=== PATIENT | female | born 1985 | race Two or more races ===

== ENCOUNTER 2023-05-27 15:59 | Inpatient (IN) | payer MEDICAID ==
[~2023-05-27] VITALS: Ht 162.6 cm; Wt 97.5 kg
[2023-05-27 16:00] VITALS: BP 149/65; TEMP 98.8; O2SAT 99
[2023-05-27 16:30] VITALS: BP 149/65; TEMP 98.8; O2SAT 99
[2023-05-27] MEDS ORDERED: LEVO25TA7 PO (16:38)
[2023-05-27] MEDS ORDERED: FURO-145 PO (16:38)
[2023-05-27] MEDS ORDERED: VENL37.55 PO (16:38)
[2023-05-27] MEDS ORDERED: PANT40TA2 PO (16:38)
[2023-05-27] MEDS ORDERED: MYCO500T PO (16:38)
[2023-05-27] MEDS ORDERED: PRED5TAB PO (16:38)
[2023-05-27] MEDS ORDERED: BENA20TA9 PO (16:38)
[2023-05-27] MEDS ORDERED: CALC1TAB30 PO (16:38)
[2023-05-27] MEDS ORDERED: FOLI0.4T6 PO (16:38)
[2023-05-27] MEDS ORDERED: RIVA10TA PO (16:38)
[2023-05-27] MEDS ORDERED: CYAN-51 PO (16:38)
[2023-05-27] MEDS ORDERED: HYDROCODONE/APAP 5/325MG TABLET PO PRN (17:00)
[2023-05-27] MEDS ORDERED: ACETAMINOPHEN 325 MG TABLET PO PRN (17:00)
[2023-05-27] MEDS ORDERED: MAGNESIUM HYDROXIDE 30 ML UDC PO PRN (17:00)
[2023-05-27] MEDS ORDERED: Z GUARD REMEDY 4 OZ OINT TP PRN (17:00)
[2023-05-27] MEDS ORDERED: ENOXAPARIN SODIUM 40 MG/0.4 ML DISP.SYRIN SQ SCH (17:00)
[2023-05-27] MEDS ORDERED: ONDANSETRON HCL/PF 4 MG/2 ML VIAL IVP PRN (17:00)
[2023-05-27] MEDS ORDERED: MAG HYDROX/AL HYDROX/SIMETH 30 ML UDC PO PRN (17:00)
[2023-05-27] MEDS ORDERED: ALBUTEROL FS 2.5 MG/0.5 ML VIAL.NEB NEB PRN (17:00)
[2023-05-27] MEDS ORDERED: IPRATROPIUM NEB FS 0.5 MG/2.5 ML AMPUL.NEB NEB PRN (17:00)
[2023-05-27] MEDS: DOXYCYCLINE HYCLATE (100 MG) 100 MG TABLET PO SCH ×2 (17:57→21:19)
[2023-05-27] MEDS: dexaMETHasone SOD PHOSPHATE 10 MG/ML VIAL IV SCH (17:58)
[2023-05-27] MEDS ORDERED: PIPERACILLIN /TAZOBACTAM 3.375 G in IV D5W 100 ML IV SCH (18:00)
[2023-05-27] MEDS: FLUCONAZOLE IN NS 100 MG in PREMIX 1 EA IV SCH ×2 (18:19)
[2023-05-27] MEDS ORDERED: KETOROLAC TROMETHAMINE INJ 30 MG/ML VIAL IV PRN ×2 (19:00→19:30)
[2023-05-27 20:00] VITALS: BP 157/90; TEMP 98.8; O2SAT 93
[2023-05-27] MEDS ORDERED: MORPHINE SULFATE INJ 2 MG/ML DISP.SYRIN IV PRN (20:30)
[2023-05-27] MEDS ORDERED: VANCOMYCIN 1.25 GM in IV D5W 250 ML IV SCH ×2 (21:00→23:00)
[2023-05-27] MEDS ORDERED: LORAZEPAM INJ 2 MG/ML VIAL IV ONE (22:00)
[2023-05-28] VITALS (7 sets, daily range): BP systolic 114–159; BP diastolic 65–96; TEMP 97.5–98.4; O2SAT 95–99
[2023-05-28] MEDS: dexaMETHasone SOD PHOSPHATE 10 MG/ML VIAL IV SCH ×5 (00:03→23:27)
[2023-05-28] MEDS: MORPHINE SULFATE INJ 2 MG/ML DISP.SYRIN IV PRN ×5 (01:25→20:11)
[2023-05-28] MEDS: PIPERACILLIN /TAZOBACTAM 3.375 G in IV D5W 100 ML IV SCH ×2 (02:51→08:41)
[2023-05-28 05:54] LABS: BASOPHILS % (AUTO) 0.2 % (0.0-2.0); HEMATOCRIT 24 % (33-45); HEMOGLOBIN 7.4 g/dL (11.5-14.8); LYMPHOCYTES # (AUTO) 0.9 K/uL (0.8-4.8); LYMPHOCYTES % (AUTO) 6.7 % (20.0-44.0); MEAN CORPUSCULAR HEMOGLOBIN 22 PG (26.0-33.0); MEAN CORPUSCULAR HGB CONC 30 g/dl (31.0-36.0); MEAN CORPUSCULAR VOLUME 72 fL (82-100); MONOCYTES # (AUTO) 0.1 K/uL (0.1-1.30); MONOCYTES % (AUTO) 1.1 % (2.0-12.0); NEUTROPHILS # (AUTO) 11.9 K/uL (1.8-8.9); PLATELET COUNT (AUTO) 787 K/uL (150-450); RED BLOOD CELL COUNT(AUTO) 3.37 MIL/uL (4.0-5.2); RED CELL DISTRIBUTION WIDTH 19.4 % (11.5-15.0); WHITE BLOOD COUNT (AUTO) 12.9 K/uL (4.3-11.0)
[2023-05-28 06:19] LABS: CALCIUM, SERUM 8.2 mg/dL (8.5-10.1); CREATININE 0.8 mg/dL (0.6-1.3); MAGNESIUM 1.9 mg/dL (1.8-2.4); POTASSIUM 4.3 mmol/L (3.5-5.1)
[2023-05-28 06:28] LABS: THYROID STIMULATING HORMONE 1.448 uIU/mL (0.358-3.74)
[2023-05-28] MEDS: PANTOPRAZOLE 40 MG TABLET.DR PO SCH (08:00)
[2023-05-28] MEDS: LEVOTHYROXINE SODIUM 25 MCG TABLET PO SCH (08:00)
[2023-05-28] MEDS: VENLAFAXINE XR 37.5 MG CAP.SR.24H PO SCH (08:08)
[2023-05-28] MEDS: DOXYCYCLINE HYCLATE (100 MG) 100 MG TABLET PO SCH ×2 (08:08→21:10)
[2023-05-28] MEDS ORDERED: RIVAROXABAN 10 MG TABLET PO SCH (09:00)
[2023-05-28 09:37] LABS: LYMPHOCYTES % (MANUAL) 5 % (16-48); MONOCYTES % (MANUAL) 1 % (0-11.0); NEUTROPHILS % (MANUAL) 94 (42-76)
[2023-05-28 09:38] LABS: PLATELET ESTIMATE INCREASED
[2023-05-28 09:39] LABS: ANISOCYTOSIS 2+; HYPOCHROMASIA 2+
[2023-05-28 09:40] LABS: OVALOCYTES 1+
[2023-05-28] MEDS: SULFAMETHOXAZOLE/TRIMETHOPRIM 20 ML in IV D5W 500 ML IV SCH ×3 (09:50→23:37)
[2023-05-28] MEDS ORDERED: SODIUM CL FOR INHALATION 3% 15 ML VIAL.NEB IH ONE (12:00)
[2023-05-28] MEDS: ZOSYN IVPB 3.375 G in IV D5W 50ml IV SCH ×2 (14:15→20:24)
[2023-05-28] MEDS: FLUCONAZOLE IN NS 100 MG in PREMIX 1 EA IV SCH ×2 (17:06)
[2023-05-28 22:41] LABS: OCCULT BLOOD STOOL NEGATIVE (NEGATIVE)
[2023-05-28 22:44] LABS: PREGNANCY TEST URINE QUAL NEGATIVE (NEGATIVE)
[2023-05-29] MEDS: MORPHINE SULFATE INJ 2 MG/ML DISP.SYRIN IV PRN ×2 (00:58→05:37)
[2023-05-29] MEDS: ZOSYN IVPB 3.375 G in IV D5W 50ml IV SCH ×2 (01:51→07:53)
[2023-05-29] MEDS: dexaMETHasone SOD PHOSPHATE 10 MG/ML VIAL IV SCH (05:34)
[2023-05-29 05:57] LABS: HEMATOCRIT 25 % (33-45); HEMOGLOBIN 7.5 g/dL (11.5-14.8); LYMPHOCYTES # (AUTO) 1.1 K/uL (0.8-4.8); LYMPHOCYTES % (AUTO) 6.6 % (20.0-44.0); MEAN CORPUSCULAR HEMOGLOBIN 21 PG (26.0-33.0); MEAN CORPUSCULAR HGB CONC 30 g/dl (31.0-36.0); MEAN CORPUSCULAR VOLUME 72 fL (82-100); MONOCYTES # (AUTO) 0.5 K/uL (0.1-1.30); MONOCYTES % (AUTO) 2.7 % (2.0-12.0); NEUTROPHILS # (AUTO) 15.7 K/uL (1.8-8.9); NEUTROPHILS % (AUTO) 90.7 % (43.0-81.0); PLATELET COUNT (AUTO) 790 K/uL (150-450); RED BLOOD CELL COUNT(AUTO) 3.53 MIL/uL (4.0-5.2); RED CELL DISTRIBUTION WIDTH 20.5 % (11.5-15.0); WHITE BLOOD COUNT (AUTO) 17.3 K/uL (4.3-11.0)
[2023-05-29 06:22] LABS: BILIRUBIN,TOTAL 0.3 mg/dL (0.2-1.0); CALCIUM, SERUM 8.3 mg/dL (8.5-10.1); CREATININE 1.2 mg/dL (0.6-1.3); POTASSIUM 4.1 mmol/L (3.5-5.1); TOTAL PROTEIN, SERUM 6.2 g/dL (6.4-8.2)
[2023-05-29 06:40] LABS: ALBUMIN 2.4 g/dL (3.4-5.0)
[2023-05-29] MEDS: PANTOPRAZOLE 40 MG TABLET.DR PO SCH (07:52)
[2023-05-29] MEDS: LEVOTHYROXINE SODIUM 25 MCG TABLET PO SCH (07:52)
[2023-05-29 08:00] VITALS: BP 136/77; TEMP 98.1; O2SAT 98
[2023-05-29] MEDS: SULFAMETHOXAZOLE/TRIMETHOPRIM 20 ML in IV D5W 500 ML IV SCH (08:11)
[2023-05-29] MEDS: DOXYCYCLINE HYCLATE (100 MG) 100 MG TABLET PO SCH (08:54)
[2023-05-29] MEDS: VENLAFAXINE XR 37.5 MG CAP.SR.24H PO SCH (08:54)
[2023-06-01 20:06] LABS: *MYCOPLASMA PNEUMONIAE IgG <100 U/mL (0-99); *MYCOPLASMA PNEUMONIAE IgM <770 U/mL (0-769)
== END 2023-05-29 11:46 | disposition left against medical advice (07) | DRG 346 ==
LOC: TELE 15:59 → MED 05-28 15:54
DX: M32.13 Lung involvement in systemic lupus erythematosus (principal); J96.01 Acute respiratory failure with hypoxia; J18.9 Pneumonia, unspecified organism; D84.821 Immunodeficiency due to drugs; D68.69 Other thrombophilia; I11.0 Hypertensive heart disease with heart failure; I50.9 Heart failure, unspecified; D50.9 Iron deficiency anemia, unspecified; T38.0X5A Adverse effect of glucocorticoids and synthetic analogues, initial encounter; E03.9 Hypothyroidism, unspecified; Z86.711 Personal history of pulmonary embolism; Z88.6 Allergy status to analgesic agent; E66.01 Morbid (severe) obesity due to excess calories; Z79.52 Long term (current) use of systemic steroids; Y92.89 Other specified places as the place of occurrence of the external cause; Z68.36 Body mass index [BMI] 36.0-36.9, adult
CPT/HCPCS: 36415; 71045-TC; 71250-TC; 80048-TC; 80053-TC; 80061-TC; 80202-TC; 82272-TC; 83540-TC; 83735-TC; 84100-TC; 84443-TC; 84703-TC; 85025-TC; 86713; 86738; 87449; 87899; 93307-TC; 93970-TC; 97112-TC; 97116-TC; 97530-TC; A4216; A4218; A4223; G0378; J1100; J1450; J2060; J2270; J2543; J3370; J3490; J7030; J7060